=== PATIENT | female | born 1965 | race American Indian/Alaskan Native ===

== ENCOUNTER 2016-08-01 13:01 | Emergency (ER) | payer OTHER ==
--- NOTE | 2016-08-01 14:41 | Emergency Department Report ---
Chief Complaint: Neuro Symptoms/Deficit Stated Complaint: LEFT SIDE WEAKNESS Time Seen by Provider: 08/01/16 14:28 - HPI History of Present Illness: 54-year-old female presents today complaining of one episode of left-sided weakness and tingling that lasted 15 minutes. Patient denies any symptoms at this time. Denies head injury or trauma. States that her left side feels a little heavier. Positive for history of similar symptoms and states that she was diagnosed with anemia. Patient also states that she's been on her cycle for 14 days. Positive for history of hypertension and has been out of her blood pressure medication for 3 days. Patient is currently on HCTZ and losartan. - ROS Review of Systems: Per HPI - Exam Vital Signs: Vital Signs 08/01/16 13:27 Temperature 98.6 F Pulse Rate 88 Respiratory 18 Rate Blood Pressure 200/97 O2 Sat by Pulse 100 Oximetry Physical Exam: General: 51-year-old female in no acute distress. Well-developed, well- nourished. CV: Regular rate and rhythm. Lungs: Clear to auscultation bilaterally. Neuro: Alert and oriented 3, fluid speech, EOMs intact, normal facial sensation , strength exam 5/5 upper and lower extremities, GCS equals 15, finger to nose normal MSE screening note: Focused history and physical exam performed. Due to findings the following was ordered: ED Disposition for MSE Condition: Stable
[2016-08-01 15:48] LABS: Mean Corpuscular HGB Conc 30 % (30-34); Red Blood Count 4.15 M/mm3 (3.65-5.03); White Blood Count 8.5 K/mm3 (4.5-11.0)
[2016-08-01 15:50] LABS: Hematocrit 27.8 % (30.3-42.9); Hemoglobin 8.2 gm/dl (10.1-14.3); Mean Corpuscular Hemoglobin 20 pg (28-32); Mean Corpuscular Volume 67 fl (79-97); Platelet Count 469 K/mm3 (140-440); Red Cell Distribution Width 20.9 % (13.2-15.2)
[2016-08-01 16:45] LABS: Blood Urea Nitrogen 9 mg/dL (7-17); Calcium 8.8 mg/dL (8.4-10.2); Carbon Dioxide 28 mmol/L (22-30); Chloride 99.6 mmol/L (98-107); Glucose 109 mg/dL (65-100); Sodium 140 mmol/L (137-145)
[2016-08-01 16:48] LABS: Anisocytosis 1+; Basophils % (Manual) 0 % (0.0-1.8); Blastocytes % (Manual) 0 %; Microcytosis 1+
[2016-08-01 16:49] LABS: Hypochromasia 2+; Target Cells Few
[2016-08-01 16:50] LABS: Anion Gap 16 mmol/L; Diff Status Complete; Platelet Estimate Consistent w Auto
[2016-08-01 23:49] VITALS: BP 223/147
[2016-08-02] MEDS ORDERED: APRESOLINE IV ONE (04:04)
[2016-08-02] MEDS ORDERED: APRESOLINE ONE (04:33)
--- NOTE | 2016-08-02 13:46 | Admit Criteria Form ---
Admission Criteria Documentation: HYPERTENSION Clinical Indications for Admission to Inpatient Care ( Place "X" for any and all applicable criteria): Admission is indicated for ANY ONE of the following(1)(2)(3)(4): [ ]I. Hypertensive emergency, with evidence of acute and progressing target organ disease as indicated by ANY ONE of the following: [ ]a) Hypertensive encephalopathy (eg, confusion, altered mental status) [ ]b) Cerebral infarction [ ]c) Intracranial hemorrhage [ ]d) Myocardial ischemia or infarction [ ]e) Pulmonary edema [ ]f) Aortic dissection [ ]g) Seizure [ ]h) Acute renal insufficiency [ ]i) Papilledema [ ]j) Microangiopathic hemolytic anemia [ ]II. Adrenergic crisis (eg, severe hypertension due to pheochromocytoma crisis, cocaine or amphetamine intoxication, or clonidine withdrawal) [ X]III. Severe hypertension (SBP greater than 180 mmHg or DBP greater than 110 mmHg or greater than the 95th percentile for age, gender, and height in pediatric patients) that cannot be controlled (eg, to SBP less than 160 mmHg and DBP less than 100 mmHg in adults) by treatment with oral medication in emergency department or observation care Extended stay beyond goal length of stay may be needed for(11)(12)(13): [ ]a) Persistent hypertensive encephalopathy [ ]b) Continuation of pulmonary edema [ ]c) Recurring or persistent severe hypertension [ ]d) Target organ damage (eg, angina, stroke, aortic dissection) [ ]e) Associated renal insufficiency The original [employer] content created by [employer] has been revised. The portions of the content which have been revised are identified through the use of italic text or in bold, and [facility] has neither reviewed nor approved the modified material. All other unmodified content is copyright [employer]. Please see references footnoted in the original [employer] edition 2016
== END 2016-08-02 05:15 | disposition home or self-care (01) ==
LOC: ED 13:01
DX: I10 Essential (primary) hypertension (principal); R20.9 Unspecified disturbances of skin sensation
CPT/HCPCS: 36415; 80048; 84484; 85007; 85025; 93005; 93010; 99284; J0360